=== PATIENT | male | born 1965 | race Caucasian/White ===

== ENCOUNTER 2018-12-20 01:00 | Emergency (ER) | payer OTHER, BC ==
[~2018-12-20] VITALS: Ht 177.8 cm; Wt 79.4 kg
[~2018-12-20 01:00] MED LIST: CEFU250 PO; CYCL10 PO; FLUT.05NI; HYDACE5 PO; IBUP600 PO; LORPSEER12 PO; RXCYCL10 PO
[2018-12-20] MEDS ORDERED: CYCL10 PO (04:00)
== END 2018-12-20 04:19 | disposition home or self-care (01) ==
LOC: ER 01:00
DX: T14.8XXA Other injury of unspecified body region, initial encounter (principal); M79.661 Pain in right lower leg; M54.5 Low back pain; V89.2XXA Person injured in unspecified motor-vehicle accident, traffic, initial encounter
CPT/HCPCS: 99283

== ENCOUNTER 2024-10-13 11:59 | Emergency (ER) | payer OTHER, BC ==
[~2024-10-13] VITALS: Ht 175.3 cm; Wt 79.4 kg
[2024-10-13 12:15] VITALS: BP 148/105
[2024-10-13] MEDS ORDERED: Diphth,Pertuss(Acell),Tet Vac 0.5 ML VIAL IM ONE (12:20)
== END 2024-10-13 13:53 | disposition home or self-care (01) ==
LOC: ER 11:59
DX: S71.112A Laceration without foreign body, left thigh, initial encounter (principal); Z23 Encounter for immunization; Z79.899 Other long term (current) drug therapy; Z59.89 Other problems related to housing and economic circumstances; W27.8XXA Contact with other nonpowered hand tool, initial encounter
CPT/HCPCS: 12032; 90471; 90715; 99282-25

== ENCOUNTER 2024-10-23 08:33 | Emergency (ER) | payer OTHER, BC | END 2024-10-23 09:32 | disposition home or self-care (01) | LOC: ER 08:33 | DX: S81.012D Laceration without foreign body, left knee, subsequent encounter (principal); Z79.1 Long term (current) use of non-steroidal anti-inflammatories (NSAID); Z79.899 Other long term (current) drug therapy; Z59.89 Other problems related to housing and economic circumstances; X58.XXXD Exposure to other specified factors, subsequent encounter | CPT/HCPCS: 99282 ==